=== PATIENT | female | born 1965 | race Caucasian/White ===

== ENCOUNTER 2022-11-13 06:57 | Day surgery (SDC) | payer BC ==
[~2022-11-13 06:57] MED LIST: Lactated Ringers 1,000 ML IV SCH; Lidocaine 1%/Sod Bicarbonate in NS 8.4% 1 ML Syringe IDERM PRN; Sodium Chloride 0.9% 10 ML Syringe FLUSH PRN; Sodium Chloride 0.9% 10 ML Syringe FLUSH SCH
[2022-11-13] MEDS ORDERED: Midazolam 1 MG/ML 2 ML SDV ONE (07:07)
[2022-11-13] MEDS ORDERED: fentaNYL 100 MCG/2 ML SDV ONE (07:08)
[2022-11-13] MEDS ORDERED: Propofol 200 MG/20 ML SDV ONE (07:08)
[2022-11-13] MEDS ORDERED: Lidocaine 1% 2 ML ONE (07:09)
[2022-11-13] MEDS ORDERED: Lidocaine 1% 10 ML MDV ONE (07:13)
[2022-11-13] MEDS ORDERED: Bupivacaine 0.25% 10 ML SDV ONE (07:13)
[2022-11-13] MEDS ORDERED: Ondansetron 4 MG/2 ML SDV IVPUSH PRN (07:25)
[2022-11-13] MEDS ORDERED: fentaNYL 100 MCG/2 ML SDV IVPUSH PRN (07:25)
[2022-11-13] MEDS ORDERED: HYDROmorphone 0.5 MG/0.5 ML Syringe IVPUSH PRN (07:25)
== END 2022-11-13 09:23 | disposition home or self-care (01) ==
LOC: JD.SDS 06:57
PROVIDERS: ATTEND Orthopaedic Surgery
DX: M65.311 Trigger thumb, right thumb (principal); M65.841 Other synovitis and tenosynovitis, right hand; F41.9 Anxiety disorder, unspecified; R53.83 Other fatigue; E21.3 Hyperparathyroidism, unspecified; R63.5 Abnormal weight gain; G47.00 Insomnia, unspecified; Z88.2 Allergy status to sulfonamides; Z79.899 Other long term (current) drug therapy; Z79.82 Long term (current) use of aspirin; Z98.890 Other specified postprocedural states; Z68.26 Body mass index [BMI] 26.0-26.9, adult
CPT/HCPCS: 26055; J2250; J2704; J3010; J3490; J7120; 01810